=== PATIENT | female | born 1990 | race Caucasian/White ===

== ENCOUNTER 2018-08-06 21:40 | Inpatient (IN) | payer BC ==
[2018-08-06] MEDS ORDERED: Sodium Chloride 0.9% 10 ML Syringe FLUSH PRN (21:45)
[2018-08-06] MEDS ORDERED: Lidocaine 1% 50 ML MDV INJECT PRN (21:45)
[2018-08-06] MEDS ORDERED: Misoprostol 200 MCG Tab PO PRN (21:45)
[2018-08-06] MEDS ORDERED: Oxytocin/0.9 % Sodium Chloride 30 UNIT/500 ML BAG IV SCH (21:45)
[2018-08-06] MEDS ORDERED: Nalbuphine 10 MG/1 ML Vial IVPUSH PRN (21:45)
[2018-08-06] MEDS ORDERED: Water For Irrigation,Sterile 1,000 ML Container IRR PRN (21:45)
[2018-08-06] MEDS ORDERED: Sodium Chloride 0.9% 10 ML SDV IV PRN (21:45)
[2018-08-06] MEDS ORDERED: Sodium Chloride 0.9% 2.5 ML Syringe FLUSH PRN (21:45)
[2018-08-06] MEDS ORDERED: Carboprost Tromethamine 250 MCG/1 ML Amp IM PRN (21:45)
[2018-08-06] MEDS ORDERED: Methylergonovine 0.2 MG/1 ML Amp IM PRN (21:45)
[2018-08-06] MEDS ORDERED: Butorphanol 1 MG/ML SDV IVPUSH PRN (21:45)
[2018-08-06] MEDS ORDERED: Tranexamic Acid 1,000 MG in Sodium Chloride 0.9% 100 ML IV PRN (21:45)
[2018-08-06] MEDS ORDERED: Ampicillin 2 GM in Sodium Chloride 0.9% 100 ML IV ONE (22:00)
[2018-08-06] MEDS: Lactated Ringers 1,000 ML IV SCH (22:13)
[2018-08-07] MEDS ORDERED: Terbutaline 1 MG/ML SDV SUBCUT PRN (01:57)
[2018-08-07] MEDS ORDERED: Oxytocin/0.9 % Sodium Chloride 30 UNIT/500 ML BAG IV SCH (02:00)
[2018-08-07] MEDS: Ampicillin 1 GM in Sodium Chloride 0.9% 50 ML IV SCH ×2 (02:01→07:10)
[2018-08-07] MEDS: Lactated Ringers 1,000 ML IV SCH (06:00)
[2018-08-07] MEDS ORDERED: Ondansetron 4 MG/2 ML SDV ONE (10:01)
--- NOTE | 2018-08-07 10:14 | PCM.DEL ---
L & D Note - General Info Date of Service: 08/07/18 - Delivery Note Labor: Induced by ARM, Induced by Oxytocin Delivery Outcome: Livebirth Infant Delivery Method: Spontaneous Vaginal Delivery-Twins Infant Delivery Mode: Spontaneous (precipitous) Nuchal Cord: None Anesthesia Type: None Amniotic Fluid Description: Clear Episiotomy Type: None Laceration: None Placenta: Intact, Spontaneous Cord: 3 Vessels Resuscitation Needed: No : Suctioned Score 1 min: 8 Score 5 min: 9 Delivery Comments (Free Text/Narrative):: female - General Info Date of Service: 08/07/18 - Patient Data Weight - Most Recent: 83.915 kg Lab Results Last 24 Hours: Laboratory Results - last 24 hr 08/06/18 08/06/18 Range/Units 22:09 22:09 WBC 5.44 (4.0-11.0) K/uL RBC 3.76 L (4.30-5.90) M/uL Hgb 11.8 L (12.0-16.0) g/dL Hct 33.9 L (36.0-46.0) % MCV 90.2 (80.0-98.0) fL MCH 31.4 (27.0-32.0) pg MCHC 34.8 (31.0-37.0) g/dL RDW Std Deviation 40.9 (28.0-62.0) fl RDW Coeff of Christian 13 (11.0-15.0) % Plt Count 157 (150-400) K/uL MPV 10.80 (7.40-12.00) fL Nucleated RBC % 0.0 /100WBC Nucleated RBCs # 0 K/uL Blood Type O NEGATIVE Antibody Screen NEGATIVE Med Orders - Current: Current Medications Butorphanol Tartrate (Stadol) 1 mg IVPUSH Q1H PRN PRN Reason: Pain Last Admin: 08/07/18 10:06 Dose: 1 mg Carboprost Tromethamine (Hemabate Ds) 250 mcg IM ASDIRECTED PRN PRN Reason: Post Hemorrhage Lactated Ringer's (Ringers, Lactated) 1,000 mls @ 150 mls/hr IV ASDIRECTED SUSAN Last Admin: 08/07/18 06:00 Dose: 150 mls/hr Oxytocin/Sodium Chloride (Oxytocin 30 Unit/500 Ml-Ns) 30 unit in 500 mls @ 500 mls/hr IV TITRATE SUSAN Tranexamic Acid 1,000 mg/ (Sodium Chloride) 110 mls @ 660 mls/hr IV ONETIME PRN PRN Reason: Bleeding Ampicillin Sodium 1 gm/ Sodium (Chloride) 50 mls @ 100 mls/hr IV Q4H SUSAN Last Admin: 08/07/18 07:10 Dose: 100 mls/hr Oxytocin/Sodium Chloride (Oxytocin 30 Unit/500 Ml-Ns) 30 unit in 500 mls @ 2 mls/hr IV TITRATE SUSAN; Protocol Last Titration: 08/07/18 10:10 Dose: 999 mls/hr Lidocaine HCl (Xylocaine 1%) 50 ml INJECT ONETIME PRN PRN Reason: Laceration repair Methylergonovine Maleate (Methergine) 0.2 mg IM ASDIRECTED PRN PRN Reason: Post Hemorrhage Misoprostol (Cytotec) 200 mcg PO ONETIME PRN PRN Reason: Post Hemorrhage Nalbuphine HCl (Nubain) 10 mg IVPUSH Q1H PRN PRN Reason: Pain (severe 7-10) Sodium Chloride (Saline Flush) 10 ml FLUSH ASDIRECTED PRN PRN Reason: Keep Vein Open Sodium Chloride (Saline Flush) 2.5 ml FLUSH ASDIRECTED PRN PRN Reason: Keep Vein Open Sodium Chloride (Normal Saline) 10 ml IV ASDIRECTED PRN PRN Reason: IV Use Sterile Water (Sterile Water For Irrigation) 1,000 ml IRR ASDIRECTED PRN PRN Reason: delivery Terbutaline Sulfate (Brethine) 0.25 mg SUBCUT ASDIRECTED PRN PRN Reason: Tacysystole Discontinued Medications Ampicillin Sodium 2 gm/ Sodium (Chloride) 100 mls @ 200 mls/hr IV ONETIME ONE Stop: 08/06/18 22:29 Last Admin: 08/06/18 22:15 Dose: 200 mls/hr Ondansetron HCl (Zofran) Confirm Administered Dose 4 mg .ROUTE .STK-MED ONE Stop: 08/07/18 10:02 Last Admin: 08/07/18 10:06 Dose: 4 mg - Problem List & Annotations (1) Vaginal delivery SNOMED Code(s): 754643675 Code(s): O80 - ENCOUNTER FOR FULL-TERM UNCOMPLICATED DELIVERY Status: Acute Current Visit: No - Problem List Review Problem List Initiated/Reviewed/Updated: Yes - My Orders Last 24 Hours: My Active Orders 08/06/18 21:45 Patient Status [ADT] Routine Heart Tones [RC] CONTINUOUS Non Stress Test [RC] PER UNIT ROUTINE May Shower [RC] ASDIRECTED Notify Provider [RC] PRN Up ad Myrna [RC] ASDIRECTED Vaginal Exam [RC] PRN Vital Signs [RC] PER UNIT ROUTINE Butorphanol [Stadol] 1 mg IVPUSH Q1H PRN Carboprost Tromethamine [Hemabate DS] 250 mcg IM ASDIRECTED PRN Lactated Ringers [Ringers, Lactated] 1,000 ml IV ASDIRECTED Lidocaine 1% [Xylocaine 1%] 50 ml INJECT ONETIME PRN Methylergonovine [Methergine] 0.2 mg IM ASDIRECTED PRN Nalbuphine [Nubain] 10 mg IVPUSH Q1H PRN Oxytocin/0.9 % Sodium Chloride [Oxytocin 30 Unit/500 ML-NS] 30 unit in 500 ml IV TITRATE Sodium Chloride 0.9% [Normal Saline] 10 ml IV ASDIRECTED PRN Sodium Chloride 0.9% [Saline Flush] 10 ml FLUSH ASDIRECTED PRN Sodium Chloride 0.9% [Saline Flush] 2.5 ml FLUSH ASDIRECTED PRN Tranexamic Acid [Cyklokapron] 1,000 mg Sodium Chloride 0.9% [Normal Saline] 100 ml IV ONETIME Water For Irrigation,Sterile [Sterile Water for Irrigation] 1,000 ml IRR ASDIRECTED PRN miSOPROStol [Cytotec] 200 mcg PO ONETIME PRN Scalp Electrode [WOMSER] Per Unit Routine Peripheral IV Insertion Adult [OM.PC] Routine Resuscitation Status Routine 08/07/18 01:57 Bedrest Bathroom Privileges [RC] ASDIRECTED Communication Order [RC] ASDIRECTED Communication Order [RC] ASDIRECTED Notify Provider [RC] PRN Vaginal Exam [RC] PRN Vital Signs [RC] PER UNIT ROUTINE Terbutaline [Brethine] 0.25 mg SUBCUT ASDIRECTED PRN 08/07/18 02:00 Ampicillin 1 gm Sodium Chloride 0.9% [Normal Saline] 50 ml IV Q4H Oxytocin/0.9 % Sodium Chloride [Oxytocin 30 Unit/500 ML-NS] 30 unit in 500 ml IV TITRATE Medication Administration Instruction [OM.PC] Q3H 08/07/18 Breakfast Clear Liquid Diet [DIET]
[2018-08-07] MEDS ORDERED: Methylergonovine 0.2 MG/1 ML Amp IM PRN (10:15)
[2018-08-07] MEDS ORDERED: oxyCODONE 5 MG Tab PO PRN (10:15)
[2018-08-07] MEDS ORDERED: Acetaminophen 500 MG Tab PO PRN ×2 (10:15)
[2018-08-07] MEDS ORDERED: Ibuprofen 400 MG Tab PO PRN (10:15)
[2018-08-07] MEDS ORDERED: Lanolin 100% Cream 7 GM Tube TOP PRN (10:15)
[2018-08-07] MEDS ORDERED: Witch Hazel Medicated Pads 40/Jar TOP PRN (10:15)
[2018-08-07] MEDS ORDERED: Benzocaine/Menthol 20%-0.5% Spray 78 GM Cannister TOP PRN (10:15)
[2018-08-07] MEDS ORDERED: Bisacodyl 10 MG Supp RECTAL PRN (10:15)
--- NOTE | 2018-08-07 12:40 | OR ---
SURGEON: Flakita Mcfadden M.D. DATE OF PROCEDURE: 08/07/2018 PREOPERATIVE DIAGNOSES: 1. 39 weeks' intrauterine . 2. History of rapid labors. POSTOPERATIVE DIAGNOSES: 1. 39 weeks' intrauterine . 2. History of rapid labors. 3. Precipitous delivery. ANESTHESIA: None. ESTIMATED BLOOD LOSS: Less than 200 mL. FINDINGS: Live born female. scores 8 and 9. Weight is pending at the time of dictation. COMPLICATIONS: None known. DISPOSITION: Stable to recovery. BRIEF HISTORY: This is a 28-year-old female, G3, P2-0-0-2. She presents for induction of labor at 39 weeks' gestation. She is known to be group B strep positive. She received three doses of ampicillin. Pitocin was initiated after second dose of ampicillin. After the third dose of ampicillin, she was 3 cm, 80%, -2 station, and artificial rupture of membranes was performed with clear fluid noted. She progressed from 3 cm to 6-7 cm over the following hour and a half, and when the nurse checked her, she was 8 cm. She stepped out of the room and returned to the room, and the head was delivered. At this point, I was called for precipitous delivery. DESCRIPTION OF PROCEDURE: When I arrived in the room, mom was holding the baby. The cord had been clamped, the infant was a liveborn female, scores 8 and 9, and cord blood was collected for cord ABGs as well as routine cord blood sampling. Pitocin was initiated to assist with delivery, which was delivered spontaneously. Esvintze intact with 3 vessels. Upon inspection of the pelvis and perineum, there were no periurethral, vaginal sidewall, cervical, rectal, or perineal lacerations. EBL was less than 200 mL. There were no known complications. Mother and baby are in LDR in good condition. ALESSANDRO / BABAK /[id number]
[2018-08-07] MEDS: Ibuprofen 800 MG Tab PO PRN ×2 (13:16→19:30)
[2018-08-07] MEDS: Docusate Sodium 100 MG Cap PO PRN (19:37)
[2018-08-08] MEDS: Ibuprofen 800 MG Tab PO PRN ×2 (04:32→12:14)
--- NOTE | 2018-08-08 07:54 | PCM.PNPP ---
<Leah Jeffers - Last Filed: 08/08/18 07:51> - General Info Date of Service: 08/08/18 Functional Status: Reports: Pain Controlled, Tolerating Diet, Ambulating, Urinating - Review of Systems General: Denies: Fever, Weakness, Fatigue Pulmonary: Denies: Shortness of Breath, Pleuritic Chest Pain, Cough Cardiovascular: Denies: Chest Pain, Palpitations, Dyspnea on Exertion Gastrointestinal: Denies: Abdominal Pain Genitourinary: Denies: Dysuria - General Info Date of Service: 08/08/18 - Patient Data Vital Signs - Most Recent: Last Vital Signs Temp 37.2 C 08/08/18 04:15 Pulse 73 08/08/18 04:15 Resp 18 08/08/18 04:15 BP 112/67 08/08/18 04:15 Pulse Ox 96 08/08/18 04:15 Weight - Most Recent: 83.915 kg Lab Results - Last 24 Hours: Laboratory Results - last 24 hr 08/07/18 08/08/18 Range/Units 09:54 05:10 Hgb 10.8 L (12.0-16.0) g/dL Hct 31.8 L (36.0-46.0) % Cord ABG pH 7.287 (7.18-7.38) Cord ABG Base Excess -3 (-10--2) Cord VBG pH 7.374 (7.25-7.45) Cord VBG Base Excess -3 (-10--2) Med Orders - Current: Current Medications Acetaminophen (Tylenol Extra Strength) 500 mg PO Q4H PRN PRN Reason: Pain Acetaminophen (Tylenol Extra Strength) 1,000 mg PO Q4H PRN PRN Reason: Pain Benzocaine/Menthol (Dermoplast Pain Relief 20%-0.5% [place]) 78 gm TOP ASDIRECTED PRN PRN Reason: Perineal Comfort Measure Bisacodyl (Dulcolax) 10 mg RECTAL ONETIME PRN PRN Reason: Constipation Docusate Sodium (Colace) 100 mg PO BID PRN PRN Reason: Constipation Last Admin: 08/07/18 19:37 Dose: 100 mg Emollient Ointment (Lansinoh Hpa) 0 gm TOP ASDIRECTED PRN PRN Reason: Sore Nipples Ibuprofen (Motrin) 400 mg PO Q4H PRN PRN Reason: Pain Ibuprofen (Motrin) 800 mg PO Q6H PRN PRN Reason: Pain Last Admin: 08/08/18 04:32 Dose: 800 mg Methylergonovine Maleate (Methergine) 0.2 mg IM ONETIME PRN PRN Reason: Excessive Vaginal Bleeding Oxycodone HCl (Oxycodone) 5 mg PO Q2H PRN PRN Reason: Pain Last Admin: 08/07/18 23:23 Dose: 5 mg Witch Rosaline (Tucks) 1 pad TOP ASDIRECTED PRN PRN Reason: comfort care Discontinued Medications Butorphanol Tartrate (Stadol) 1 mg IVPUSH Q1H PRN PRN Reason: Pain Last Admin: 08/07/18 10:06 Dose: 1 mg Carboprost Tromethamine (Hemabate Ds) 250 mcg IM ASDIRECTED PRN PRN Reason: Post Hemorrhage Ampicillin Sodium 2 gm/ Sodium (Chloride) 100 mls @ 200 mls/hr IV ONETIME ONE Stop: 08/06/18 22:29 Last Admin: 08/06/18 22:15 Dose: 200 mls/hr Lactated Ringer's (Ringers, Lactated) 1,000 mls @ 150 mls/hr IV ASDIRECTED SUSAN Last Admin: 08/07/18 06:00 Dose: 150 mls/hr Oxytocin/Sodium Chloride (Oxytocin 30 Unit/500 Ml-Ns) 30 unit in 500 mls @ 500 mls/hr IV TITRATE [facility] Tranexamic Acid 1,000 mg/ (Sodium Chloride) 110 mls @ 660 mls/hr IV ONETIME PRN PRN Reason: Bleeding Ampicillin Sodium 1 gm/ Sodium (Chloride) 50 mls @ 100 mls/hr IV Q4H [facility] Last Admin: 08/07/18 07:10 Dose: 100 mls/hr Oxytocin/Sodium Chloride (Oxytocin 30 Unit/500 Ml-Ns) 30 unit in 500 mls @ 2 mls/hr IV TITRATE [facility]; Protocol Last Titration: 08/07/18 10:10 Dose: 999 mls/hr Lidocaine HCl (Xylocaine 1%) 50 ml INJECT ONETIME PRN PRN Reason: Laceration repair Methylergonovine Maleate (Methergine) 0.2 mg IM ASDIRECTED PRN PRN Reason: Post Hemorrhage Misoprostol (Cytotec) 200 mcg PO ONETIME PRN PRN Reason: Post Hemorrhage Nalbuphine HCl (Nubain) 10 mg IVPUSH Q1H PRN PRN Reason: Pain (severe 7-10) Ondansetron HCl (Zofran) Confirm Administered Dose 4 mg .ROUTE .STK-MED ONE Stop: 08/07/18 10:02 Last Admin: 08/07/18 10:06 Dose: 4 mg Sodium Chloride (Saline Flush) 10 ml FLUSH ASDIRECTED PRN PRN Reason: Keep Vein Open Sodium Chloride (Saline Flush) 2.5 ml FLUSH ASDIRECTED PRN PRN Reason: Keep Vein Open Sodium Chloride (Normal Saline) 10 ml IV ASDIRECTED PRN PRN Reason: IV Use Sterile Water (Sterile Water For Irrigation) 1,000 ml IRR ASDIRECTED PRN PRN Reason: delivery Terbutaline Sulfate (Brethine) 0.25 mg SUBCUT ASDIRECTED PRN PRN Reason: Tacysystole - Interaction Disposition, : in Room with Family Infant Interaction: Holding Infant Infant Feeding: Breastfed ; Nursed Well Support Person: - Recovery Exam Fundal Tone: Firm, Firms with Massage Fundal Level: 2 Fingerbreadths Below Umbilicus Fundal Placement: Midline Lochia Amount: Small Lochia Color: Rubra/Red Perineum Description: Intact, Minimal Bruising/Swelling Episiotomy/Laceration: None Bladder Status: Voiding Urinary Elimination: Voided - Exam General: Alert, Oriented Neck: Supple Lungs: Clear to Auscultation, Normal Respiratory Effort Cardiovascular: Regular Rate, Regular Rhythm GI/Abdominal Exam: Normal Bowel Sounds, Soft, Non-Tender, No Distention, No Mass Extremities: Normal Inspection, Non-Tender, Normal Capillary Refill, Pedal Edema (trace) Skin: Warm, Dry, Intact - Problem List & Annotations (1) Vaginal delivery SNOMED Code(s): 848265451 Code(s): O80 - ENCOUNTER FOR FULL-TERM UNCOMPLICATED DELIVERY Status: Acute Current Visit: No - Problem List Review Problem List Initiated/Reviewed/Updated: Yes - Assessment Assessment:: PPD #1 s/p precipitous delivery. Minimal pain and lochia. Breast feeding well. - Plan Plan:: Discharge instructions reviewed. Can use OTC ibuprofen/tylenol as needed for pain. Pelvic rest for 6 weeks. Instructed patient to call if she develops fever greater than 101 or bleeding through a large pad an hour. F/U with [facility] in 6 weeks. <Flakita Mcfadden - Last Filed: 08/08/18 09:06> - Patient Data Vital Signs - Most Recent: Last Vital Signs Temp 36.5 C 08/08/18 08:00 Pulse 74 08/08/18 08:00 Resp 16 08/08/18 08:00 BP 107/69 08/08/18 08:00 Pulse Ox 99 08/08/18 08:00 Lab Results - Last 24 Hours: Laboratory Results - last 24 hr 08/07/18 08/08/18 Range/Units 09:54 05:10 Hgb 10.8 L (12.0-16.0) g/dL Hct 31.8 L (36.0-46.0) % Cord ABG pH 7.287 (7.18-7.38) Cord ABG Base Excess -3 (-10--2) Cord VBG pH 7.374 (7.25-7.45) Cord VBG Base Excess -3 (-10--2) Med Orders - Current: Current Medications Acetaminophen (Tylenol Extra Strength) 500 mg PO Q4H PRN PRN Reason: Pain Acetaminophen (Tylenol Extra Strength) 1,000 mg PO Q4H PRN PRN Reason: Pain Last Admin: 08/08/18 08:04 Dose: 1,000 mg Benzocaine/Menthol (Dermoplast Pain Relief 20%-0.5% [place]) 78 gm TOP ASDIRECTED PRN PRN Reason: Perineal Comfort Measure Bisacodyl (Dulcolax) 10 mg RECTAL ONETIME PRN PRN Reason: Constipation Docusate Sodium (Colace) 100 mg PO BID PRN PRN Reason: Constipation Last Admin: 08/08/18 08:17 Dose: 100 mg Emollient Ointment (Lansinoh Hpa) 0 gm TOP ASDIRECTED PRN PRN Reason: Sore Nipples Ibuprofen (Motrin) 400 mg PO Q4H PRN PRN Reason: Pain Ibuprofen (Motrin) 800 mg PO Q6H PRN PRN Reason: Pain Last Admin: 08/08/18 04:32 Dose: 800 mg Methylergonovine Maleate (Methergine) 0.2 mg IM ONETIME PRN PRN Reason: Excessive Vaginal Bleeding Oxycodone HCl (Oxycodone) 5 mg PO Q2H PRN PRN Reason: Pain Last Admin: 08/07/18 23:23 Dose: 5 mg Witch Rosaline (Tucks) 1 pad TOP ASDIRECTED PRN PRN Reason: comfort care Discontinued Medications Butorphanol Tartrate (Stadol) 1 mg IVPUSH Q1H PRN PRN Reason: Pain Last Admin: 08/07/18 10:06 Dose: 1 mg Carboprost Tromethamine (Hemabate Ds) 250 mcg IM ASDIRECTED PRN PRN Reason: Post Hemorrhage Ampicillin Sodium 2 gm/ Sodium (Chloride) 100 mls @ 200 mls/hr IV ONETIME ONE Stop: 08/06/18 22:29 Last Admin: 08/06/18 22:15 Dose: 200 mls/hr Lactated Ringer's (Ringers, Lactated) 1,000 mls @ 150 mls/hr IV ASDIRECTED SUSAN Last Admin: 08/07/18 06:00 Dose: 150 mls/hr Oxytocin/Sodium Chloride (Oxytocin 30 Unit/500 Ml-Ns) 30 unit in 500 mls @ 500 mls/hr IV TITRATE [facility] Tranexamic Acid 1,000 mg/ (Sodium Chloride) 110 mls @ 660 mls/hr IV ONETIME PRN PRN Reason: Bleeding Ampicillin Sodium 1 gm/ Sodium (Chloride) 50 mls @ 100 mls/hr IV Q4H SUSAN Last Admin: 08/07/18 07:10 Dose: 100 mls/hr Oxytocin/Sodium Chloride (Oxytocin 30 Unit/500 Ml-Ns) 30 unit in 500 mls @ 2 mls/hr IV TITRATE SUSAN; Protocol Last Titration: 08/07/18 10:10 Dose: 999 mls/hr Lidocaine HCl (Xylocaine 1%) 50 ml INJECT ONETIME PRN PRN Reason: Laceration repair Methylergonovine Maleate (Methergine) 0.2 mg IM ASDIRECTED PRN PRN Reason: Post Hemorrhage Misoprostol (Cytotec) 200 mcg PO ONETIME PRN PRN Reason: Post Hemorrhage Nalbuphine HCl (Nubain) 10 mg IVPUSH Q1H PRN PRN Reason: Pain (severe 7-10) Ondansetron HCl (Zofran) Confirm Administered Dose 4 mg .ROUTE .STK-MED ONE Stop: 08/07/18 10:02 Last Admin: 08/07/18 10:06 Dose: 4 mg Sodium Chloride (Saline Flush) 10 ml FLUSH ASDIRECTED PRN PRN Reason: Keep Vein Open Sodium Chloride (Saline Flush) 2.5 ml FLUSH ASDIRECTED PRN PRN Reason: Keep Vein Open Sodium Chloride (Normal Saline) 10 ml IV ASDIRECTED PRN PRN Reason: IV Use Sterile Water (Sterile Water For Irrigation) 1,000 ml IRR ASDIRECTED PRN PRN Reason: delivery Terbutaline Sulfate (Brethine) 0.25 mg SUBCUT ASDIRECTED PRN PRN Reason: Tacysystole - Problem List & Annotations (1) Vaginal delivery SNOMED Code(s): 161212718 Code(s): O80 - ENCOUNTER FOR FULL-TERM UNCOMPLICATED DELIVERY Status: Acute Current Visit: No - Problem List Review Problem List Initiated/Reviewed/Updated: Yes - My Orders Last 24 Hours: My Active Orders 08/07/18 10:15 Patient Status [ADT] Routine May Shower [RC] ASDIRECTED Up ad Myrna [RC] ASDIRECTED Vital Signs [RC] PER UNIT ROUTINE Acetaminophen [Tylenol Extra Strength] 1,000 mg PO Q4H PRN Acetaminophen [Tylenol Extra Strength] 500 mg PO Q4H PRN Benzocaine/Menthol [Dermoplast Pain Relief 20%-0.5% [place]] 78 gm TOP ASDIRECTED PRN Bisacodyl [Dulcolax] 10 mg RECTAL ONETIME PRN Docusate Sodium [Colace] 100 mg PO BID PRN Ibuprofen [Motrin] 400 mg PO Q4H PRN Ibuprofen [Motrin] 800 mg PO Q6H PRN Lanolin [Lansinoh HPA] See Dose Instructions TOP ASDIRECTED PRN Methylergonovine [Methergine] 0.2 mg IM ONETIME PRN Witch Rosaline [Tucks] 1 pad TOP ASDIRECTED PRN oxyCODONE 5 mg PO Q2H PRN Assess Lochia [WOMSER] Per Unit Routine Assess Uterine Involution [WOMSER] Per Unit Routine Peripheral IV Discontinue [OM.PC] Routine Resuscitation Status Routine 08/07/18 10:16 Perineal Care [OM.PC] Per Unit Routine 08/07/18 Lunch Regular Diet [DIET] - Assessment Assessment:: Patient was seen and examined by me and I agree with above.
[2018-08-08] MEDS: Docusate Sodium 100 MG Cap PO PRN (08:17)
[2018-08-08 08:24] VITALS: BP 107/69
== END 2018-08-08 12:25 | disposition home or self-care (01) | DRG 560 ==
LOC: MW.OBCHECK 21:40 → MW.OB 21:43 → OBSVTOIN 08-07 09:54 → MW.OB 08-07 13:21
PROVIDERS: ADMIT Obstetrics & Gynecology; ATTEND Obstetrics & Gynecology
PROC: 6A550ZT Pheresis of Cord Blood Stem Cells, Single (ICD-10-PCS; principal; 2018-08-07)
PROC: 3E033VJ Introduction of Other Hormone into Peripheral Vein, Percutaneous Approach (ICD-10-PCS; principal; 2018-08-07)
PROC: 10E0XZZ Delivery of Products of Conception, External Approach (ICD-10-PCS; principal; 2018-08-07)
PROC: 10907ZC Drainage of Amniotic Fluid, Therapeutic from Products of Conception, Via Natural or Artificial Opening (ICD-10-PCS; principal; 2018-08-07)
DX: O99.824 Streptococcus B carrier state complicating childbirth (principal); Z37.0 Single live birth; Z3A.39 39 weeks gestation of pregnancy; Z87.891 Personal history of nicotine dependence; O62.3 Precipitate labor
CPT/HCPCS: 36415; 59025; 59409; 82803; 85014; 85018; 85027; 86850; 86900; 86901; A9270-GY; J0290; J0595; J2405; J2590; J7030; J7050; J7120

== ENCOUNTER 2023-05-16 05:17 | Inpatient (IN) | payer OTHER ==
[2023-05-16] MEDS ORDERED: Sodium Chloride 0.9% 2.5 ML Syringe FLUSH PRN (06:41)
[2023-05-16] MEDS ORDERED: Lidocaine 1% 50 ML MDV INJECT PRN (06:41)
[2023-05-16] MEDS ORDERED: Water For Irrigation,Sterile 1,000 ML Container IRR PRN (06:41)
[2023-05-16] MEDS ORDERED: Terbutaline 1 MG/ML SDV SUBCUT PRN (06:41)
[2023-05-16] MEDS ORDERED: Nalbuphine 10 MG/0.5 ML Syringe IVPUSH PRN (06:41)
[2023-05-16] MEDS ORDERED: Carboprost Tromethamine 250 MCG/1 mL Vial IM PRN (06:41)
[2023-05-16] MEDS ORDERED: Tranexamic Acid IN NACL,ISO-OS 1,000 MG in Premix Bag 1 BAG IV PRN ×2 (06:41)
[2023-05-16] MEDS ORDERED: Misoprostol 200 MCG Tab PO PRN (06:41)
[2023-05-16] MEDS ORDERED: Sodium Chloride 0.9% 20 ML SDV IV PRN (06:41)
[2023-05-16] MEDS ORDERED: Methylergonovine 0.2 MG/1 ML Amp IM PRN (06:41)
[2023-05-16] MEDS ORDERED: Sodium Chloride 0.9% 10 ML Syringe FLUSH PRN (06:41)
[2023-05-16] MEDS ORDERED: Ondansetron 4 MG/2 ML SDV IVPUSH PRN (06:41)
[2023-05-16] MEDS ORDERED: Oxytocin/0.9 % Sodium Chloride 30 UNIT/500 ML BAG IV SCH ×2 (06:45)
[2023-05-16 06:52] LABS: HEMOGLOBIN 11.9 g/dL (12.0-16.0); MEAN CORPUSCULAR HEMOGLOBIN 32.2 pg (28.0-32.0); MEAN CORPUSCULAR HGB CONC 36.1 g/dL (32.0-36.0); MEAN CORPUSCULAR VOLUME 89.4 fL (83.0-99.0); MEAN PLATELET VOLUME 11.6 fL (9.4-12.3); PLATELET COUNT,PLT 157 K/uL (150-400); RED BLOOD CELL COUNT 3.69 M/uL (4.10-5.30); WHITE BLOOD CELL COUNT,WBC 7.33 K/uL (3.9-11.3)
[2023-05-16] MEDS: Lactated Ringers 1,000 ML IV SCH ×2 (07:00→11:20)
[2023-05-16] MEDS ORDERED: Benzocaine/Menthol 20%-0.5% Spray 78 GM Cannister ONE (12:00)
[2023-05-16] MEDS ORDERED: Witch Hazel Medicated Pads 40/Jar TOP ONE (12:01)
[2023-05-16] MEDS ORDERED: Ibuprofen 800 MG Tab ONE (12:02)
[2023-05-16] MEDS ORDERED: Lidocaine 1% 50 ML MDV ONE (14:24)
[2023-05-16] MEDS ORDERED: Docusate Sodium 100 MG Cap PO PRN (16:10)
[2023-05-16] MEDS ORDERED: Benzocaine/Menthol 20%-0.5% Spray 78 GM Cannister TOP PRN (16:10)
[2023-05-16] MEDS ORDERED: Acetaminophen 500 MG Tab ONE (16:10)
[2023-05-16] MEDS ORDERED: oxyCODONE 5 MG Tab PO PRN (16:10)
[2023-05-16] MEDS ORDERED: Witch Hazel Medicated Pads 40/Jar TOP PRN (16:10)
[2023-05-16] MEDS ORDERED: Lanolin 100% Cream 7 GM Tube TOP PRN (16:10)
[2023-05-16 16:18] LABS: PH,UMBILICAL ARTERIAL 7.269 (7.18-7.38); PH,UMBILICAL VENOUS 7.331 (7.25-7.45)
[2023-05-16] MEDS: Ibuprofen 800 MG Tab PO PRN (20:59)
[2023-05-16] MEDS: Acetaminophen 500 MG Tab PO PRN (21:00)
[2023-05-17 06:52] LABS: HEMATOCRIT 29.8 % (37.0-47.0); HEMOGLOBIN 11.1 g/dL (12.0-16.0)
[2023-05-17] MEDS: Acetaminophen 500 MG Tab PO PRN ×4 (07:48→21:43)
[2023-05-17] MEDS: Ibuprofen 800 MG Tab PO PRN ×2 (07:50→16:17)
[2023-05-18] MEDS: Ibuprofen 800 MG Tab PO PRN ×2 (01:24→08:47)
[2023-05-18 08:39] VITALS: BP 145/93; PULSE 90
[2023-05-18] MEDS: Acetaminophen 500 MG Tab PO PRN (08:45)
== END 2023-05-18 10:45 | disposition home or self-care (01) | DRG 807 ==
LOC: MW.OBCHECK 05:17 → MW.OB 05:18 → MW.OBCHECK 06:41 → OBSVTOIN 10:01 → MW.OB 15:04
PROVIDERS: ADMIT Obstetrics & Gynecology; ATTEND Obstetrics & Gynecology
PROC: 10E0XZZ Delivery of Products of Conception, External Approach (ICD-10-PCS; principal; 2023-05-16)
PROC: 0KQM0ZZ Repair Perineum Muscle, Open Approach (ICD-10-PCS; 2023-05-16)
PROC: 10907ZC Drainage of Amniotic Fluid, Therapeutic from Products of Conception, Via Natural or Artificial Opening (ICD-10-PCS; 2023-05-16)
PROC: 3E033VJ Introduction of Other Hormone into Peripheral Vein, Percutaneous Approach (ICD-10-PCS; 2023-05-16)
DX: O30.043 Twin pregnancy, dichorionic/diamniotic, third trimester (principal); Z37.2 Twins, both liveborn; O70.1 Second degree perineal laceration during delivery; Z3A.38 38 weeks gestation of pregnancy
CPT/HCPCS: 36415; 59025; 59409; 82803; 85014; 85018; 85027; 85460; 86592; 86850; 86900; 86901; A9270-GY; J2001; J2590; J2790; J7120